=== PATIENT | male | born 1960 | race Caucasian/White ===

== ENCOUNTER 2019-05-28 11:43 | Outpatient (CLI) | payer OTHER, SELFPAY ==
[2019-05-28 11:54] LABS: Basophils Absolute Auto 0.1 K/mm3 (0.0-0.1); Basophils Percent Auto 0.9 % (0.2-1.2); Eosinophils Absolute Auto 0.3 K/mm3 (0-0.3); Eosinophils Percent Auto 2.3 % (0-4.4); Hematocrit 45.8 % (42.0-52.0); Hemoglobin 16.5 g/dL (14.0-18.0); Immature Granulocyte Absolute 0.07 K/mm3 (0.00-0.031); Immature Granulocyte Percent A 0.5 % (0-0.5); Lymphocytes Absolute Auto 2.67 K/mm3 (0.9-3.2); Lymphocytes Percent Auto 20.8 % (18.3-44.2); Mean Corpuscular Volume 94.2 fl (80-100); Mean Platelet Volume 9.8 fl (7.4-10.4); Monocytes Absolute Auto 1.6 K/mm3 (0.1-0.6); Monocytes Percent Auto 12.8 % (2.6-8.5); Neutrophils Percent Auto 62.7 % (45.5-73.1); Platelet Count Result 311 k/mm3 (150-375); Red Blood Count 4.86 M/mm3 (4.6-6.20); Red Cell Distribution Width 12.6 % (11.5-14.5); White Blood Count 12.8 K/mm3 (4.5-10.0)
[2019-05-28 11:58] LABS: Blood Urea Nitrogen 21 mg/dL (8-26); Carbon Dioxide 29 mmol/L (22-30); Chloride 100 mmol/L (98-109); Estimated Glomerular Filt Rate > 60; Glucose 89 mg/dL (70-105); Potassium 4.5 mmol/L (3.5-4.9); Sodium 138 mmol/L (138-146)
[2019-05-28 12:25] LABS: Alanine Aminotransferase 15 U/L (4-50); Albumin Level 4.4 g/dL (3.5-5.1); Alkaline Phosphatase 87 U/L (38-126); Aspartate Amino Transferase 25 U/L (17-59); Bilirubin,Total 0.9 mg/dL (0.2-1.3); Blood Urea Nitrogen 21 mg/dL (9-20); Carbon Dioxide 27 mmol/L (22-30); Chloride 97 mmol/L (98-107); Estimated Glomerular Filt Rate > 60; Glucose 91 mg/dL (75-110); Potassium 4.7 mmol/L (3.4-5.0); Sodium 138 mmol/L (137-145)
== END 2019-05-28 11:44 | disposition home or self-care (01) ==
LOC: ANHLAB 11:46
PROVIDERS: PCP Internal Medicine; Visit Provider Internal Medicine Hematology & Oncology
DX: D75.1 Secondary polycythemia (principal)
CPT/HCPCS: 36415; 80048; 80053; 85025

== ENCOUNTER 2022-04-14 13:17 | Outpatient (CLI) | payer OTHER, SELFPAY ==
[2022-04-14 18:19] LABS: Alanine Aminotransferase 21 U/L (6-50); Albumin Level 4.3 g/dL (3.5-5.1); Alkaline Phosphatase 86 U/L (38-126); Anion Gap 8 mmol/L (8-16); Aspartate Amino Transferase 55 U/L (17-59); Bilirubin,Total 0.7 mg/dL (0.2-1.3); Blood Urea Nitrogen 12 mg/dL (9-20); Calcium 9.2 mg/dL (8.4-10.2); Carbon Dioxide 28 mmol/L (22-30); Chloride 104 mmol/L (98-107); Cholesterol 191 mg/dL (0-200); Estimated Glomerular Filt Rate > 60; Glucose 93 mg/dL (65-110); HDL Direct 53 mg/dL; Potassium 5.4 mmol/L (3.4-5.0); Sodium 140 mmol/L (137-145); Triglycerides 71 mg/dL (<150)
[2022-04-14 18:34] LABS: LDL Cholesterol Direct 113 mg/dL
[2022-04-14 18:41] LABS: Prostate Specific Antigen 0.8 ng/mL (< OR = 4.0)
[2022-04-14 18:53] LABS: Basophils Absolute Auto 0.1 K/mm3 (0.0-0.1); Basophils Percent Auto 1.3 % (0.2-1.2); Eosinophils Absolute Auto 0.3 K/mm3 (0-0.3); Eosinophils Percent Auto 2.3 % (0-4.4); Hematocrit 48.9 % (42.0-52.0); Hemoglobin 17.6 g/dL (14.0-18.0); Immature Granulocyte Absolute 0.15 K/mm3 (0.00-0.031); Immature Granulocyte Percent A 1.4 % (0-0.5); Lymphocytes Absolute Auto 2.68 K/mm3 (0.9-3.2); Lymphocytes Percent Auto 24.9 % (18.3-44.2); Mean Corpuscular Hemoglobin 33.9 pg (26-34); Mean Corpuscular Volume 94.2 fl (80-100); Mean Platelet Volume 10.3 fl (7.4-10.4); Monocytes Absolute Auto 1.1 K/mm3 (0.1-0.6); Monocytes Percent Auto 10.6 % (2.6-8.5); Neutrophils Absolute Auto 6.4 K/mm3 (1.3-6.7); Neutrophils Percent Auto 59.5 % (45.5-73.1); Platelet Count Result 335 k/mm3 (150-375); Red Blood Count 5.19 M/mm3 (4.6-6.20); Red Cell Distribution Width 13.3 % (11.5-14.5); White Blood Count 10.8 K/mm3 (4.5-10.0)
== END 2022-04-14 13:18 | disposition home or self-care (01) ==
LOC: ANHGOSHLAB 13:18
PROVIDERS: PCP Internal Medicine; Visit Provider Nurse Practitioner
DX: E78.00 Pure hypercholesterolemia, unspecified (principal); Z13.29 Encounter for screening for other suspected endocrine disorder; Z12.5 Encounter for screening for malignant neoplasm of prostate
CPT/HCPCS: 36415; 80053; 80061; 84153; 85025; G0103

== ENCOUNTER 2023-05-05 10:38 | Outpatient (CLI) | payer OTHER, SELFPAY ==
[2023-05-05 13:11] LABS: Basophils Absolute Auto 0.1 K/mm3 (0.0-0.1); Basophils Percent Auto 1.1 % (0.2-1.2); Eosinophils Absolute Auto 0.3 K/mm3 (0-0.3); Eosinophils Percent Auto 2.3 % (0-4.4); Hematocrit 50.7 % (42.0-52.0); Hemoglobin 17.4 g/dL (14.0-18.0); Immature Granulocyte Absolute 0.07 K/mm3 (0.00-0.031); Immature Granulocyte Percent A 0.6 % (0-0.5); Lymphocytes Absolute Auto 2.74 K/mm3 (0.9-3.2); Mean Corpuscular HGB Conc 34.3 g/dl (32-36); Mean Corpuscular Hemoglobin 33.7 pg (26-34); Mean Corpuscular Volume 98.1 fl (80-100); Mean Platelet Volume 10.7 fl (7.4-10.4); Monocytes Absolute Auto 1.4 K/mm3 (0.1-0.6); Neutrophils Absolute Auto 7.3 K/mm3 (1.3-6.7); Platelet Count Result 313 k/mm3 (150-375); Red Blood Count 5.17 M/mm3 (4.6-6.20); Red Cell Distribution Width 12.8 % (11.5-14.5); White Blood Count 11.9 K/mm3 (4.5-10.0)
[2023-05-05 13:47] LABS: Alanine Aminotransferase 13 U/L (6-50); Albumin Level 4.2 g/dL (3.5-5.1); Alkaline Phosphatase 75 U/L (38-126); Anion Gap 5 mmol/L (8-16); Aspartate Amino Transferase 52 U/L (17-59); Blood Urea Nitrogen 20 mg/dL (9-20); Calcium 9.8 mg/dL (8.4-10.2); Carbon Dioxide 30 mmol/L (22-30); Chloride 103 mmol/L (98-107); Cholesterol 207 mg/dL (0-200); Estimated Glomerular Filt Rate 56; Glucose 105 mg/dL (65-110); HDL Direct 63 mg/dL; Potassium 5.1 mmol/L (3.4-5.0); Sodium 138 mmol/L (137-145); Triglycerides 69 mg/dL (<150)
[2023-05-05 13:59] LABS: LDL Cholesterol Direct 119 mg/dL
[2023-05-05 14:17] LABS: Prostate Specific Antigen 1.5 ng/mL (< OR = 4.0)
== END 2023-05-05 10:39 | disposition home or self-care (01) ==
LOC: ANHGOSHLAB 10:39
PROVIDERS: PCP Internal Medicine; Visit Provider Nurse Practitioner
DX: Z12.5 Encounter for screening for malignant neoplasm of prostate (principal); E78.00 Pure hypercholesterolemia, unspecified; Z13.29 Encounter for screening for other suspected endocrine disorder
CPT/HCPCS: 36415; 80053; 80061; 84153; 85025; G0103

== ENCOUNTER 2023-11-02 09:28 | Outpatient (CLI) | payer OTHER, SELFPAY ==
[2023-11-02 13:41] LABS: Anion Gap 7 mmol/L (4-12); Blood Urea Nitrogen 11 mg/dL (9-20); Calcium 9.2 mg/dL (8.4-10.2); Carbon Dioxide 29 mmol/L (22-30); Chloride 99 mmol/L (98-107); Cholesterol 194 mg/dL (0-200); Estimated Glomerular Filt Rate > 60; Glucose 105 mg/dL (65-110); HDL Direct 64 mg/dL; Potassium 4.3 mmol/L (3.4-5.0); Sodium 135 mmol/L (137-145); Triglycerides 71 mg/dL (<150)
[2023-11-02 13:56] LABS: LDL Cholesterol Direct 117 mg/dL
== END 2023-11-02 09:29 | disposition home or self-care (01) ==
LOC: ANHGOSHLAB 09:30
PROVIDERS: PCP Internal Medicine; Visit Provider Nurse Practitioner
DX: E78.00 Pure hypercholesterolemia, unspecified (principal); R94.4 Abnormal results of kidney function studies
CPT/HCPCS: 36415; 80048; 80061

== ENCOUNTER 2023-12-16 11:28 | Outpatient (CLI) | payer OTHER, SELFPAY ==
--- NOTE | ~2023-12-16 | CT_ITS ---
EXAMINATION: CT lung screening DATE: 12/16/2023 11:42 INDICATION: Z72.0 - Tobacco use TECHNIQUE: Computed tomography (CT) of the chest was performed without intravenous contrast. Addition al 3D reconstructions utilizing coronal maximum intensity projection (MIP) were performed. Dr. Keith jean baptiste The dose-length product was 85.49 mGy-cm. COMPARISON: 12/22/2018 FINDINGS: Moderate emphysema. Mild linear discoid atelectasis at the and anteroapical left upper lobe. The su rity of the prior small spiculated nodular opacities have resolved. There is no change in a residual 6 mm spiculated nodule at the anterior inferior right upper lobe. Unchanged 3 mm subpleural nodule at the lateral basilar right lower lobe. There are few additional small scattered bilateral calcified p ulmonary nodules along with calcified left hilar lymph nodes consistent with old granulomatous diseas e. No new or enlarging pulmonary nodules, pneumonia, pulmonary edema or pleural effusion. Heart size is normal. Small amount of atherosclerotic coronary artery calcific location. No pericardial effusion . Thoracic aorta is normal in caliber. No pathologically enlarged thoracic lymphadenopathy. There are multiple splenic calcific lesions consistent with old granulomatous disease. Atherosclerotic calcifi cation is at the right renal hilum. Severe thoracolumbar spondylosis with chronic mild anterior wedgi ng at T11-L1. IMPRESSION: 1. Lung-RADS category 2: Benign appearance or behavior. Continue annual screening with noncontrast lo w-dose chest CT in 12 months. Reviewed, dictated and finalized at location B. IMPRESSION: 1. Lung-RADS category 2: Benign appearance or behavior. Continue annual screeni ng with noncontrast low-dose chest CT in 12 months.
== END 2023-12-16 11:29 | disposition home or self-care (01) ==
LOC: MICIMG 11:29
PROVIDERS: PCP Internal Medicine; Visit Provider Nurse Practitioner
DX: Z12.2 Encounter for screening for malignant neoplasm of respiratory organs (principal); Z87.891 Personal history of nicotine dependence
CPT/HCPCS: 71271

== ENCOUNTER 2024-03-07 14:43 | Emergency (ER) | payer MEDICARE, SELFPAY ==
[2024-03-07 14:48] VITALS: BP 143/92; PULSE 94; RESP 16; TEMP 36.9; O2SAT 98
--- NOTE | 2024-03-07 15:03 | ED_ITS ---
HPI - Ear Problem General Chief complaint: Ear Stated complaint: Hearing aid end in right ear Time Seen by Provider: 03/07/24 15:03 Source: patient and RN notes reviewed Mode of arrival: ambulatory Limitations: no limitations History of Present Illness HPI Narrative: 64-year-old male presents with concern for foreign body in his right ear. He reports the tip of an ear bud got stuck in his ear this morning, he tried to get it out with tweezers but has not been able to. MD Complaint: foreign body Related Data Allergies Allergy/AdvReac Type Severity Reaction Status Date / Time No Known Allergies Allergy Verified 11/07/23 09:26 Review of Systems Review of Systems: ENT: Reports foreign body in the right ear, decreased hearing All systems reviewed & are unremarkable except as noted in HPI and below PMFSH Past Medical History Medical History Chicken pox Colon polyps Depression Erectile dysfunction HTN (hypertension) Hypercholesterolemia Leukocytosis Measles Mumps Surgical History Surgical History H/O hand surgery right pinky finger repair 1970 Family History Family History Mother Patient's mother is in good health Father Acute myocardial infarction Hypertension CAD (coronary artery disease) CVD (cardiovascular disease) Social History Social History Smoking packs per day: 1.5 Smoking cigarettes per day: 30.0 Years smoked: 42 Smoking pack-years: 63.00 Smoking status: Current every day smoker Alcohol intake: current Alcohol use details: occasional-beer Lack of Transportation: YES Lack of Food: Sometimes True Current Housing: I Have Housing Concerned About Future Housing: YES Difficulty Paying Gas/Electric Bills: YES Difficulty Paying for Meds: YES Currently Unemployed: YES Education: Associate Degree Difficulty w/ Childcare or Family Care: YES Comments At time of signature, agree with nursing past medical, surgical, social and family history. There is no relevant family history pertinent to the presenting complaint Exam Narrative: GENERAL: Well-appearing, well-nourished, and in no acute distress. HEAD: Normocephalic EYES: PERRLA, conjunctivae clear ENT: Nares clear. Mucous membranes moist. Foreign body noticed to the right year, after room TM pearly muro with sharp light reflex bilaterally; no tragal tenderness. NECK: Supple. No lymphadenopathy CHEST: No respiratory distress, speaks in full sentences. SKIN: Warm, dry, no rash. NEURO: Alert and oriented x3. PSYCH: Normal mood and affect Course Course Emergency Course: Patient is aware of diagnosis, understands and agrees to treatment plan. Anticipatory guidance given. Patient agrees to follow-up as directed and is aware of reasons to seek care at the emergency department. Portions of this record may have been created with voice recognition software Level of Care: Express Care Visit Vital Signs Vital signs: Vital Signs Temperature 98.4 F 03/07/24 14:48 Pulse Rate 94 03/07/24 14:48 Respiratory Rate 16 03/07/24 14:48 Blood Pressure 143/92 H 03/07/24 14:48 Pulse Oximetry 98 03/07/24 14:48 Oxygen Delivery Room Air 03/07/24 14:48 Temperature 98.4 F 03/07/24 14:48 Pulse Rate 94 03/07/24 14:48 Respiratory Rate 16 03/07/24 14:48 Blood Pressure 143/92 H 03/07/24 14:48 Pulse Oximetry 98 03/07/24 14:48 Oxygen Delivery Room Air 03/07/24 14:48 Reviewed. Procedures FB Removal Ear Foreign Body #1: Foreign Body Removal Date: 03/07/24 Foreign Body Removal Time: 15:06 Location: ear canal (R) Foreign Body Suspected: other plastic TM intact pre-procedure: unable to visualize Foreign Body Removed: yes Foreign Body Removal Technique: forceps Tympanic Membrane Intact Post Procedure: Yes Patient Tolerated Procedure: well Complications: none Medical Decision Making MDM Narrative Medical decision making narrative: I evaluated this in the [facility] care. History is obtained from patient who is an independent historian and physical exam was performed.? Available medical records were reviewed. ? Exam findings and relevant testing show no acute concerns or changes; patient is non-toxic appearing and is in no distress. Differential diagnosis considered: Francois virus, strep pharyngitis, allergic rhinitis, upper respiratory tract infection, sinusitis, rhinosinusitis, nasopharyngitis. viral pharyngitis, otitis media, otitis externa, otitis effusion, cerumen impaction, foreign body. Exam findings show no acute concerns or changes; patient is non-toxic appearing and is in no distress. Patient is appropriate for outpatient treatment and follow-up. ? Differential diagnosis and treatment plan were discussed with the patient. Patient agrees with discussion and after shared medical decision making agrees with plan of care. All questions were answered to the patient's satisfaction. Patient is appropriate for outpatient treatment and follow-up. Vital Signs Vital Signs: Vital Signs Temperature 98.4 F 03/07/24 14:48 Pulse Rate 94 03/07/24 14:48 Respiratory Rate 16 03/07/24 14:48 Blood Pressure 143/92 H 03/07/24 14:48 Pulse Oximetry 98 03/07/24 14:48 Oxygen Delivery Room Air 03/07/24 14:48 Temperature 98.4 F 03/07/24 14:48 Pulse Rate 94 03/07/24 14:48 Respiratory Rate 16 03/07/24 14:48 Blood Pressure 143/92 H 03/07/24 14:48 Pulse Oximetry 98 03/07/24 14:48 Oxygen Delivery Room Air 03/07/24 14:48 Critical Care Time Critical Care Time Critical Care Time: No Discharge Plan Discharge Clinical Impression: Foreign body in right ear Patient Disposition: Home, Self-Care Condition: Stable Instructions: Ear Foreign Body (ED) Additional Instructions: 1) Please follow-up with your primary care doctor if you have any new symptoms or concerns 2) If you have any urgent concerns please go to the ER. 3) Please continue taking your home medications as usual. 4) Please read and follow information included in discharge instructions. Prescriptions: No Action omeprazole 20 mg capsule,delayed release(DR/EC) 20 mg PO DAILY Qty: 90 3RF amlodipine 10 mg tablet 10 mg PO DAILY Qty: 90 3RF atorvastatin 20 mg tablet 20 mg PO QHS Qty: 90 3RF Follow-up/Referrals: Juancho Bustos DO [Primary Care Provider] - Time of Disposition: 15:08
== END 2024-03-07 15:13 | disposition home or self-care (01) ==
PROVIDERS: Emergency Provider Nurse Practitioner; PCP Internal Medicine
DX: T16.1XXA Foreign body in right ear, initial encounter (principal); W44.B9XA Other plastic object entering into or through a natural orifice, initial encounter; I10 Essential (primary) hypertension; E78.00 Pure hypercholesterolemia, unspecified; F17.210 Nicotine dependence, cigarettes, uncomplicated
CPT/HCPCS: 69200; 99212; G0463

== ENCOUNTER 2024-12-25 09:33 | Outpatient (CLI) | payer MEDICARE, SELFPAY ==
--- OUTSIDE RECORDS SUMMARY | 2000-01-28 19:00 | XMS_ITS | Continuity of Care Document ---
Author Organization [facility] Address [address] [place] [address] [place] [address] Phone Care Team Providers Care Inside Tester Name Role Phone Unavailable Unavailable Unavailable Advance Directives Directive Yes / No Effective Date File Name No Information Encounters Encounter Description Practice Location Reason(s) For Visit Diagnoses Date Provider Providers Copied on Encounter [facility], [address] [place] [address] [address], [place], [place], [id number], [place] tel:[phone] YUA [facility] No Information 7200 0 No Information Family History Family Member Type Diagnosis Age At Onset No Information Payers Payer name Insurance type Covered democrat ID Authoriza tion(s) No Information Social History [...]
--- OUTSIDE RECORDS SUMMARY | 2024-12-25 10:18 | XMS_ITS | Clinical Summary ---
Author Organization [facility] Address [address] [place] [address] Care Team Providers Care Hoop Bender Tank Name Role Phone Juancho Bustos DO Primary Care Provider Allergies No known active allergies Medications lisinopril (PRINIVIL) 10 mg tablet Take 10 mg by mouth daily. Active atorvastatin (LIPITOR) 10 mg tablet Take 10 mg by mouth daily with supper. Active varenicline (CHANTIX) 0.5 mg (11)- 1 mg (42) tablets in a dose pack Take as directed on package.. 1 Package 10/19/2018 Active methylphenidate HCl (RITALIN) 10 mg tablet TK 1 T PO QID 0 10/04/2018 Ac tive sildenafil, antihypertensiv e, (REVATIO) 20 mg Tablet TK 3 TO 5 TS PO QD NEEDED. NTE 100 MG IN 36 H 0 10/19/2018 Active WELLBUTRIN XL 150 mg Extended Release 24 hour tablet Take 1 Tablet (150 mg) by mouth daily clay pigeon loader. 30 Tablet 2 10/26/2018 Active Active Problems Problem Noted Date Diagnosed Date Leukocytosis (leucocytosis) 10/19/2018 Erythrocytosis 10/19/2018 Family History Medical History Relation Name Comments Cancer Brother 2 Relation Name Status Comments Brother 1 Alive Brother 2 Father Mother Alive Sister Alive Son 1 Alive Son 2 Alive Social History Tobacco Use Types Packs/Day Years Used Date Smoking Tobacco: Every Day Cigarettes Alcohol Use Standard Drinks/Week Comments Yes 0 (1 standard drink = 0.6 oz pur e alcohol) Sex and Gender Information Value Date Recorded Sex Assigned at Not on file Legal Sex Male 11:59 AM CDT Gender Identity Not on file Sexual Orientation Not on file Last Filed Vital Signs Vital Sign Reading Time Taken Comments Blood Pressure 104/64 05/28/2019 12:02 PM MANAGER PUBLIC Pulse 87 05/28/2019 12:02 PM MANAGER PUBLIC Temperature 36.5 C (97.7 F) 05/28/2019 12:02 PM MANAGER PUBLIC Respiratory Rate 16 10/19/2018 1:50 PM CDT Oxygen Saturation 96% 05/28/2019 12:02 PM MANAGER PUBLIC Inhaled Oxygen Concentration - - Weight 80.5 kg (177 lb 6.4 oz) 05/28/2019 12:02 PM MANAGER PUBLIC Height 180.3 cm (5' 11) 05/28/2019 12:02 PM MANAGER PUBLIC Body Mass Index 24.74 05/28/2019 12:02 PM MANAGER PUBLIC Plan of Treatment Health Maintenance Due Date Last Done Comments DTAP/TDAP/TD VACCINES (1 - Tdap) 1978 PNEUMOCOCCAL VACCINE 50+ YEARS (1 of 2 - PCV) 01/31/19 78 COLORECTAL SCREENING 02/01/2004 Colorectal Cancer Screening 02/01/2004 FIT-DNA Q 3 years 02/01/2004 FIT/FOBT Q 1 year 02/01/2004 Flex Sig/CT Colonography Q 5 years 02/01/2004 ZOSTER VACCINE (1 of 2) 2009 INFLUENZA VACCINE (#1) 2024 RSV VACCINE (60+ or ) (1 - 1-dose 75+ series) 2034 Insurance AETNA CHOICE POS II Care Teams Hoop Bender Tank Relationship Specialty Start Date End Date Juancho Bustos DO [address] [place] [address] PCP - General Internal Medicine 09/21/18
--- OUTSIDE RECORDS SUMMARY | 2024-12-25 10:18 | XMS_ITS | Clinical Summary ---
Author Organization [facility] Address [address] [place] [address] Care Team Providers Care Physician General Internal Medicine Name Role Phone Gian Mercer MD Primary Care Provider + Source Comments [facility],non-owned Affiliates and Associated Physician Practices is amultiple site organization consisting of ambulatory clinics and hospital sitesin [place], [place], [place] and [place]. This disclosure is being madepursuant to the Care Everywhere program and may not contain all information available regarding this patient. Last updated 17.[facility] Allergies No known active allergies Medications * Be aware that medications may not be up to date on this document. Alwaysverify current medications with the patient. polyethylene glycol (GOLYTELY) 236 g solution Drink 1/2 of prep at 5pm the night before test. Finish the prep at 4am the day of test. 4000 mL 2 Active albuterol HFA (PROVENTIL; VENTOLIN; PROAIR) 108 (90 Base) MCG/ACT inhaler Inhale 2 puffs by mouth every 6 hours as needed 1 Active amLODIPine (NORVASC) 10 MG tablet Take 10 mg by mouth once 1 Active atorvastatin (LIPITOR) 40 MG tablet 1 Active lisinopril (PRINIVIL; ZESTRIL) 10 MG tablet Take 10 mg by mouth once daily Active methylphenidate (RITALIN) 10 MG tablet Take 10 mg by mouth 4 times daily 1 Active omeprazole (PRILOSEC) 40 MG capsule Take 40 mg by mouth once daily 1 Active sildenafil (VIAGRA) 100 MG tablet Take 100 mg by mouth once daily as needed FOR ERECTILE DYSFUNCTION 1 Active tadalafil (CIALIS) 10 MG tablet 1 Active Social History Tobacco Use Types Packs/Day Years Used Date Smoking Tobacco: Every Day Cigarettes Smokeless Tobacco: Never Alcohol Use Standard Drinks/Week Comments Yes 0 (1 standard drink = 0.6 oz pur e alcohol) social, occasional AUDIT-C Answer Date Recorded Q1: How often do you have a drink containing alc ohol? Never 04/06/2021 Average Number of Drinks Not on file 022 Q3: How often do you have si x or more drinks on one occasion? Never 04/06/2021 Sex and Gender Information Value Date Recorded Sex Assigned at Not on file Legal Sex Male 7:40 AM BIRD RAISER Gender Identity Not on file Sexual Orientation Not on file Last Filed Vital Signs Vital Sign Reading Time Taken Comments Blood Pressure 142/86 04/06/2021 10:00 AM BIRD RAISER Pulse 69 04/06/2021 10:00 AM BIRD RAISER Temperature 36.4 C (97.5 F) 04/06/2021 10:00 AM BIRD RAISER Respiratory Rate 19 04/06/2021 10:00 AM BIRD RAISER Oxygen Saturation 99% 04/06/2021 10:00 AM BIRD RAISER Inhaled Oxygen Concentration - - Weight 83.1 kg (183 lb 4.8 oz) 04/06/2021 8:05 A M BIRD RAISER Height 180.3 cm (5' 11) 04/06/2021 8:05 AM BIRD RAISER Body Mass Index 25.57 04/06/2021 8:05 AM BIRD RAISER Plan of Treatment Health Maintenance Due Date Last Done Comments CT COLONOGRAPHY - COLON CA SCREENING 1959 FIT - COLON CA SCREENING 1959 FLEX SIG - COLON CA SCREENING 1959 HIV SCREENING 1974 DTAP/TDAP/TD VACCINES (1 - Tdap) 1978 PNEUMOCOCCAL VACCINE 50+ (1 of 1 - PCV) 2009 ZOSTER VACCINE (1 of 2) 2009 COLOGUARD (AGES 45-75) - COL ON CA SCREENING 01/20/2024 01/19/2021 AAA SCREENING 02/01/2024 DEPRESSION SCREENING 04/04/2024 COVID-19 VACCINE ( - 2023-2 5 season) 2024 INFLUENZA VACCINE (#1) 2024 12/31/2020 COLON MONITORING 04/06/2031 04/06/2021, 04/06/2021 COLONOSCOPY - COLON CA SCREENING 04/06/2031 04/06/2021, 04/06/2021 Colorectal Cancer Screening 04/06/2031 Respiratory Syncytial Virus (RSV) Vaccine Pt: or over 60 yrs (1 - 1-dose 75+ series) 2034 HEPATITIS C SCREENING Completed 01/26/2021 HEPATITIS B VACCINE Aged Out No longe r eligible based on patient's age to complete this topic HIB VACCINE Aged Out No longer eligi ble based on patient's age to complete this topic HPV VACCINE Aged Out No longer eligi ble based on patient's age to complete this topic MENINGOCOCCAL (Group B) VACCINE SHARED DECISION-MAKING Aged Out No longer eligible based on patient's age to complete this topic MENINGOCOCCAL GROUPS A/C/Y/W VACCINE Aged Out No longer eligible b ased on patient's age to complete this topic Procedures Procedure Name Priority Date/Time Associated Diagnosis Comments ENDOSCOPY, COLON, DIAGNOSTIC Routine 04/06/2021 8:02 AM BIRD RAISER from Last 3 Months or Most Recently Relevant to Health Maintenance Results * ENDOSCOPY, COLON, DIAGNOSTIC (04/06/2021 8:02 AM BIRD RAISER) Report Endoscopy POC Endoscopy Department Report _ Patient Name: Pearl Sandoval Procedure Date: 04/06/2021 8:02 AM Date of : 1960 Classification: Outpatient Gender: Male Ethnicity: Not or Race: White _ Providers: Neptali Torres MD Referring MD: Kenny Cole MD Procedure: Colonoscopy Indications: Positive Cologuard test Medications: See the Anesthesia note for documentation of the administered medications Patient Profile: 61M w/ +Cologuard, here for Colonoscopy. Description of Procedure: After I obtained informed consent, the scope was passed under direct vision. Throughout the procedure, the patient's blood pressure, pulse, and oxygen saturations were monitored continuously. The [id number] was introduced through the anus and advanced to the cecum, identified by appendiceal orifice and ileocecal valve. The colonoscopy was performed without difficulty. The patient tolerated the procedure well. The quality of the bowel preparation was evaluated using the BBPS ([place] Bowel Preparation Scale) with scores of: Right Colon = 3 (entire mucosa seen well with no residual staining, small fragments of stool or opaque liquid), Transverse Colon = 3 (entire mucosa seen well with no residual staining, small fragments of stool or opaque liquid) and Left Colon = 2 (minor amount of residual staining, small fragments of stool and/or opaque liquid, but mucosa seen well). The total BBPS score equals 8. The quality of the bowel preparation was good. Findings: A 6 mm polyp was found in the ascending colon. The polyp was sessile. The polyp was removed with a cold snare. Resection and retrieval were complete. A 2 mm polyp was found in the rectum. The polyp was sessile. The polyp was removed with a cold biopsy forceps. Resection and retrieval were complete. A 10 mm polyp was found in the rectum. The polyp was flat. The polyp was removed with a cold snare. Resection and retrieval were complete. To prevent bleeding after the polypectomy, two hemostatic clips were successfully placed (DruaClip 11 mm - MR [facility]). There was no bleeding at the end of the procedure. Multiple small and large-mouthed diverticula were found in the sigmoid colon. The perianal and digital rectal examinations were normal. Estimated Blood Loss: Estimated blood loss was minimal. Complications: No immediate complications. Impression: - One 6 mm polyp in the ascending colon, removed with a cold snare. Resected and retrieved. - One 2 mm polyp in the rectum, removed with a cold biopsy forceps. Resected and retrieved. - One 10 mm polyp in the rectum, removed with a cold snare. Resected and retrieved. Two clips placed for prophylaxis (DuraClip 11 mm - MR conditional). - Diverticulosis in the sigmoid colon. Moderate Sedation: MAC Recommendation: - Patient has a contact number available for emergencies. The signs and symptoms of potential delayed complications were discussed with the patient. Return to normal activities tomorrow. Written discharge instructions were provided to the patient. - Resume previous diet. - Continue present medications. - Await pathology results. - Timing of repeat colonoscopy for surveillance to be determined based on pathology results. Attending Participation: I personally performed the entire procedure. Procedure Code(s): --- Professional --- 24228, Colonoscopy, flexible; with removal of tumor(s), polyp(s), or other lesion(s) by snare technique 72337, 59, Colonoscopy, flexible; with biopsy, single or multiple Diagnosis Code(s): --- Professional --- K63.5, Polyp of colon K62.1, Rectal polyp R19.5, Other fecal abnormalities K57.30, Diverticulosis of large intestine without perforation or abscess without bleeding CPT copyright 2019 [employer]. All rights reserved. The codes documented in this report are preliminary and upon lighting engineering technician review may be revised to meet current compliance requirements. Neptali Torres MD 04/06/2021 9:31:31 AM Note Initiated On: 04/06/2021 8:02 AM Number of Addenda: [address] [id number] [facility] 04/06/2021 8:02 AM BIRD RAISER us Neptali Torres MD GI PROCEDURE ORDERAB LES Edited Result - Final [facility] from Last 3 Months or Most Recently Relevant to Health Maintenance Insurance AETNA AETNA Care Teams Physician General Internal Medicine Relationship Specialty Start Date End Date Gian Mercer MD [address] [facility] [address] [place] [address] PCP - General 02/11/21
[2024-12-25 11:06] LABS: Hematocrit 48.6 % (42.0-52.0); Hemoglobin 16.9 g/dL (14.0-18.0); Immature Granulocyte Percent A 0.5 % (0-0.5); Lymphocytes Absolute Auto 1.33 K/mm3 (0.9-3.2); Mean Corpuscular HGB Conc 34.8 g/dl (32-36); Mean Corpuscular Hemoglobin 33.9 pg (26-34); Mean Corpuscular Volume 97.4 fl (80-100); Nucleated Red Blood Cells Absolute Auto 0.000 K/mm3 (0.0-0.012); Nucleated Red Blood Cells Perc 0.0 % (0.0-0.2); Platelet Count Result 311 k/mm3 (150-375); Red Blood Count 4.99 M/mm3 (4.6-6.20); White Blood Count 10.1 K/mm3 (4.5-10.0)
[2024-12-25 11:18] LABS: Alanine Aminotransferase 12 U/L (6-50); Albumin Level 4.3 g/dL (3.5-5.1); Alkaline Phosphatase 74 U/L (38-126); Anion Gap 7 mmol/L (4-12); Aspartate Amino Transferase 38 U/L (17-59); Bilirubin,Total 1.2 mg/dL (0.2-1.3); Blood Urea Nitrogen 10 mg/dL (9-20); Calcium 9.2 mg/dL (8.4-10.2); Carbon Dioxide 27 mmol/L (22-30); Chloride 102 mmol/L (98-107); Cholesterol 206 mg/dL (0-200); Estimated Glomerular Filt Rate > 60; Glucose 102 mg/dL (65-110); HDL Direct 70 mg/dL; Sodium 136 mmol/L (137-145); Total Protein 7.8 g/dL (6.3-8.2); Triglycerides 66 mg/dL (<150)
[2024-12-25 11:27] LABS: Potassium 4.7 mmol/L (3.4-5.0)
[2024-12-25 11:53] LABS: Prostate Specific Antigen 1.1 ng/mL (< OR = 4.0)
== END 2024-12-25 09:34 | disposition home or self-care (01) ==
LOC: ANHGOSHLAB 09:34
PROVIDERS: PCP Internal Medicine; Visit Provider Nurse Practitioner
DX: Z12.5 Encounter for screening for malignant neoplasm of prostate (principal); R94.4 Abnormal results of kidney function studies; E87.5 Hyperkalemia; D75.1 Secondary polycythemia; E78.00 Pure hypercholesterolemia, unspecified; Z13.29 Encounter for screening for other suspected endocrine disorder
CPT/HCPCS: 36415; 80053; 80061; 84153; 85025; G0103

== ENCOUNTER 2025-01-08 13:19 | Outpatient (CLI) | payer MEDICARE, SELFPAY ==
--- OUTSIDE RECORDS SUMMARY | 2000-01-28 19:00 | XMS_ITS | Continuity of Care Document ---
Author Organization [facility] Address [id number] [place] [address] [place] [address] Phone Care Team Providers Care Rn Stars Name Role Phone Unavailable Unavailable Unavailable Advance Directives Directive Yes / No Effective Date File Name No Information Encounters Encounter Description Practice Location Reason(s) For Visit Diagnoses Date Provider Providers Copied on Encounter [facility], [address] [place] [address] [address], [place], [place], [id number], [place] tel:[phone] OBV [facility] No Information 7200 0 No Information Family History Family Member Type Diagnosis Age At Onset No Information Payers Payer name Insurance type Covered libertarian ID Authoriza tion(s) No Information Social History Type Description Quantity Date Captured Comments Sex Male Smoking Status No Information Chief Complaint And Reason For Visit No Information Reason For Referral Reason For Referral No Information History Of Present Illness Encounter Date Complaint History Of Prese nt Illness No Information Functional Status Date Functional Assessmen t No Information Instructions Date Instruction Additional Infor mation No Information Assessments Type Assessment Date No Information Patient Care Teams Name Effective Dates (start - stop) Status Members No Information
--- NOTE | ~2025-01-08 | CT_ITS ---
EXAMINATION:CT lung screening DATE: 01/08/2025 14:00 INDICATION: Personal history of nicotine dependence. TECHNIQUE: Computed tomography (CT) of the chest was performed without intravenous contrast. Automated exposure control and iterative reconstruction technique were employed. The dose-length product (DLP) was 97.85 mGy-cm. COMPARISON: Chest CT 12/16/2023 FINDINGS: There is moderate emphysema. There is mild atelectasis bilaterally. There are a few scattered 3 mm nodules in the lungs. There is a stable 4 mm nodule in right upper lobe. Calcified left lung nodules and calcified left hilar lymph nodes are consistent with old granulomatous disease. No pleural effusion. The heart size is normal. There are coronary artery calcifications. No pericardial effusion. Calcifications in the spleen are consistent with old granulomatous disease. There is severe cervical spondylosis, moderate thoracic spondylosis, and severe lumbar spondylosis. There is mild chronic anterior wedging of multiple vertebral bodies. IMPRESSION: 1. Lung-RADS category 2: Benign appearance or behavior. Continue annual screening with noncontrast low-dose chest CT in 12 months. Reviewed, dictated and finalized at location E. IMPRESSION: 1. Lung-RADS category 2: Benign appearance or behavior. Continue annual screeni ng with noncontrast low-dose chest CT in 12 months.
--- NOTE | ~2025-01-08 | US_ITS ---
EXAMINATION: US carotid duplex BI DATE: 01/08/2025 14:08 INDICATION: Other specified symptoms and signs involving the circulatory system. Carotid atherosclerosis. TECHNIQUE: Grayscale, color Doppler, and pulsed Doppler images of the cervical carotid arteries were obtained. The degree of vessel stenosis is placed in one of the following categories: normal, <50%, 50-69%, >=70% but less than near- occlusion, near-occlusion, or total occlusion. Note that percent stenosis relative to normal distal artery lumen diameter is indirectly measured from velocity measurements as described by Nino, et al. Radiology 2003; 229:340-346. COMPARISON: None. FINDINGS: RIGHT: The right common carotid artery (CCA) peak systolic velocity (PSV) is 66 cm/s. The right internal carotid artery (ICA) PSV is 68 cm/s. The right ICA end- diastolic velocity (EDV) is 30 cm/s. The right ICA/CCA PSV ratio is 1.3. Grayscale and color Doppler images yield an estimate of <50% diameter reduction from plaque in the ICA. The external carotid artery (ECA) PSV is 108 cm/s. There is antegrade flow in the right vertebral artery. LEFT: The left CCA PSV is 59 cm/s. The left ICA PSV is 69 cm/s. The left ICA EDV is 34 cm/s. The left ICA/CCA PSV ratio is 1.4. Grayscale and color Doppler images yield an estimate of <50% diameter reduction from plaque in the ICA. The ECA PSV is 104 cm/s. There is antegrade flow in the left vertebral artery. IMPRESSION: 1. <50% stenosis in the right internal carotid artery. 2. <50% stenosis in the left internal carotid artery. Reviewed, dictated and finalized at location A.
--- OUTSIDE RECORDS SUMMARY | 2025-01-08 14:13 | XMS_ITS | Clinical Summary ---
Author Organization [facility] Address [address] [place] [address] Care Team Providers Care Clean Up Supervisor Name Role Phone Kenny Cole MD Primary Care Provider [phone] Allergies No known active allergies Medications omeprazole 40 MG capsuleIndications :Gastroesophageal reflux disease without esophagitis Take 1 capsule (40 mg total) by mouth daily. 30 capsule 2 1 Active methylphenidate 10 MG tablet Take 10 mg by mouth. 1 Active aspirin 81 MG chewable tabletIndications: Atherosclerosis of aorta,Coronary artery calcification Chew 1 tablet (81 mg total) by mouth daily. 120 tablet 2 Active buPROPion SR (WELLBUTRIN SR) 150 MG 12 hr tabletIndications: Cigarette smoker Take 1 tablet (150 mg total) by mouth 2 (two) times daily. 60 tablet 2 2 Active tadalafil 20 MG tablet Take 20 mg by mouth daily. 2 Active nicotine 21 MG/24HRIndications :Tobacco dependence Place 1 patch (21 mg total) onto the skin daily. 28 patch 11 2 Active atorvastatin 80 MG tabletIndications: Atherosclerosis of aorta,Mixed hyperlipidemia,Cor onary artery calcification Take 1 tablet (80 mg total) by mouth nightly at bedtime. 90 tablet 2 2 Active amLODIPine 10 MG tabletIndications: Primary hypertension Take 1 tablet (10 mg total) by mouth daily. 90 tablet 2 2 Active albuterol sulfate HFA 108 (90 Base) MCG/ACT inhalerIndications :Other emphysema (CMS/HCC HHS/HCC) Inhale 2 puffs into the lungs every 6 (six) hours as needed for Wheezing. 18 g 4 Active Active Problems Problem Noted Date Diagnosed Date Personal history of colonic polyps 09/03/2021 Tobacco dependence 04/01/2021 Positive colorectal cancer screening using Colog uard test 04/01/2021 Primary hypertension 01/26/2021 Multiple pulmonary nodules d etermined by computed tomography of lung 01/23/2021 Other emphysema (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) 01/23/2021 Hyperkalemia 01/23/2021 Leukocytosis (leucocytosis) 10/19/2018 Immunizations Immunization Administration Dates Next Due Fluzone 6 Months+ Quad (0.5 mL Prefilled Syringe ) 12/31/2020 Pneumococcal (Pneumovax 23) 01/26/2021 Tdap (Adacel) 12/31/2020 Family History Medical History Relation Comments Cancer Brother Heart Disease Father Stroke Father Drug Abuse Son Relation Status Comments Brother Father Mother Alive Son Social History Tobacco Use Types Packs/Day Years Used Date Smoking Tobacco: Heavy Smoker Cigarettes 2.5 40 Smokeless Tobacco: Never Tobacco Cessation:Ready to Q uit: Yes; Counseling Given: Yes Comments:04-17-2021 pt states he down to 1 PPD Alcohol Use Standard Drinks/Week Comments Never 0 (1 standard drink = 0.6 oz pur e alcohol) PHQ-2 Answer Date Recorded PHQ-2 Score - If the patient scores above 3, please move on to questions 3-9 0 04/17/2021 Sex and Gender Information Value Date Recorded Sex Assigned at Not on file Legal Sex Male 7:16 AM CDT Gender Identity Not on file Sexual Orientation Not on file Last Filed Vital Signs Vital Sign Reading Time Taken Comments Blood Pressure 129/82 09/03/2021 10:00 AM CDT Pulse 83 09/03/2021 10:00 AM CDT Temperature 37.4 C (99.3 F) 09/03/2021 10:00 AM CDT Respiratory Rate 18 09/03/2021 10:00 AM CDT Oxygen Saturation 96% 09/03/2021 10:00 AM CDT Inhaled Oxygen Concentration - - Weight 84.5 kg (186 lb 3.2 oz) 09/03/2021 10:00 AM CDT Height 177.8 cm (5' 10) 09/03/2021 10:00 AM CDT Body Mass Index 26.72 09/03/2021 10:00 AM CDT Plan of Treatment Health Maintenance Due Date Last Done Comments ASCVD Statin 1960 Zoster Vaccines (1 of 2) 2009 RSV Immunization or 60+ Years (1 - Risk 60-74 years 1-dose series) 2019 Pneumococcal Vaccine: 50+ Years (2 of 2 - PCV) 01/26/2022 01/26/2021 ASCVD LDL 06/30/2022 06/30/2021, 12/2 12/2020, 01/15/2021, Additional history exists COVID-19 Vaccine ( - season) 2024 07/27/2020, 07/05/2020 Influenza Adult (#1) 2025 12/31/2020 DTaP, Tdap and Td Vaccines (2 - Td or Tdap) 12/31/2030 12/31/2020 Colorectal Cancer Screening Colonoscopy (10 Years) 04/06/2031 04/06/2021 Colorectal Cancer Screening FIT-DNA (3 Years) Discontinued 01/19/2021, 01/19/2021 Hepatitis C Completed 01/26/2021 Meningococcal B Vaccine Aged Out No l onger eligible based on patient's age to complete this topic Meningococcal Vaccine Aged Out No ani yonathan eligible based on patient's age to complete this topic RSV Immunizations Under 20 Months Aged Out No longer eligible based on patient's age to complete this topic Procedures Procedure Name Priority Date/Time Associated Diagnosis Comments LIPID PANEL Routine 06/30/2021 9:58 AM CDT Mixed hyperlipidemia COLONOSCOPY GENERIC (SCAN ORDER) 04/06/2021 HEPATITIS C ANTIBODY Routine 01/26/2021 3:02 PM CDT Encounter for hepatitis C screening test for low risk patient COLOGUARD (EXACT SCIENCE) Routine 01/19/2021 11:00 AM CDT Screening for colon cancer from Last 3 Months or Most Recently Relevant to Health Maintenance Results * LIPID PANEL (06/30/2021 9:58 AM CDT) Pathologist [facility] CHOLESTEROL 148 <200 MG/DL 06/30/2021 2:57 PM CDT [facility] TRIGLYCERIDES 40 <150 MG/DL 06/30/2021 2:57 PM CDT [facility] HDL 63 >40 MG/DL 06/30/2021 2:57 PM CDT [facility] LDL-C 77 <100 MG/DL 06/30/2021 2:57 PM CDT [facility] VLDL CALCULATION 8 5 - 28 MG/DL 06/30/2021 2:57 PM CDT [facility] CHOL/HDL RATIO 2.3 0.0 - 4.0 06/30/2021 2:57 PM CDT [facility] LDL/HDL 1.2 0.41 - 2.13 06/30/2021 2:57 PM CDT [facility] NON HDL CHOLESTEROL 85 <140 MG/DL 06/30/2021 2:57 PM CDT [facility] 06/30/2021 9:58 AM CDT us Kenny Cole MD LABORATORY Final Result [facility] [address] [place] [address], * COLONOSCOPY GENERIC (04/06/2021) 04/06/2021 Narrative 04/06/2021 Ordered by an unspecified provider. us Documents Scanned SCANNING Final Result * HEPATITIS C ANTIBODY (01/26/2021 3:02 PM CDT) Pathologist [facility] HEPATITIS C AB NON-REACTI VE NON-REACT HECTOR 01/26/2021 9:50 PM CDT [facility] Comment: ANTIBODIES TO HCV NOT DETECTED. DOES NOT EXCLUDE THE POSSIBILITY OF EXPOSURE TO HCV. 01/26/2021 3:02 PM CDT Kenny Cole MD LABORATORY Final Result [facility] [address] [place] [address], [phone] * (ABNORMAL) COLOGUARD (Reds10 SCIENCE) (01/19/2021 11:00 AM CDT) COLOGUARD RESULT Positive( A) Negative [facility] (CLIA #:[id number]) Comment: POSITIVE TEST RESULT. A positive Cologuard result should be followed with a colonoscopy or visual examination of the colon. The normal value (reference range) for this assay is negative. TEST DESCRIPTION: Composite algorithmic analysis of stool DNA-biomarkers with hemoglobin immunoassay. Quantitative values of individual biomarkers are not reportable and are not associated with individual biomarker result reference ranges. Cologuard is intended for colorectal cancer screening of adults of either sex, 45 years or older, who are at average-risk for colorectal cancer (CRC). Cologuard has been approved for use by the U.S. FDA. The performance of Cologuard was established in a cross sectional study of average-risk adults aged 50-84. Cologuard performance in patients ages 45 to 49 years was estimated by sub-group analysis of near-age groups. Colonoscopies performed for a positive result may find as the most clinically significant lesion: colorectal cancer [4.0%], advanced adenoma (including sessile serrated polyps greater than or equal to 1cm diameter) [20%] or non- advanced adenoma [31%]; or no colorectal neoplasia [45%]. These estimates are derived from a prospective cross-sectional screening study of 10,000 individuals at average risk for colorectal cancer who were screened with both Cologuard and colonoscopy. (Marlee Alfaro al, N Engl J Med 2014;370(14):4956-5078.) Cologuard may produce a false negative or false positive result (no colorectal cancer or precancerous polyp present at colonoscopy follow up). A negative Cologuard test result does not guarantee the absence of CRC or advanced adenoma (pre-cancer). The current Cologuard screening interval is every 3 years. ([place] [employer] Society and U.S. Multi-Society Task Force). Cologuard performance data in a 10,000 patient pivotal study using colonoscopy as the reference method can be accessed at the following location: www.[employer]/results. Additional description of the Cologuard test process, warnings and precautions can be found at www.cologuard.com. Stool specimen (specimen) STOOL SPECIMEN / Unknown 01/19/2021 11:00 AM CDT 01/21/2021 8:08 PM CDT us Anna Dodge FITNESS MANAGER BODY FLUIDS AND STOOLS ORDERABLE S Final Result Performing Organization Address City/State/[facility] Co de Phone Number [employer] [address] [place] [address], [facility] (CLIA #:[id number]) [address] [place] [address] from Last 3 Months or Most Recently Relevant to Health Maintenance Insurance [employer]ET[employer] Care Teams Clean Up Supervisor Relationship Specialty Start Date End Date Kenny Cole MD [address] [place] [address] PCP - General INTERNAL MEDICINE 01/16/21
--- OUTSIDE RECORDS SUMMARY | 2025-01-08 14:13 | XMS_ITS | Clinical Summary ---
Author Organization [facility] Address [address] [place] [address] Care Team Providers Care Diesel Automotive Technician Name Role Phone Juancho Bustos DO Primary [...] 1 Tablet (150 mg) by mouth daily portable sawyer. 30 Tablet 2 10/26/2018 Active Active Problems [...] Comments Blood Pressure 104/64 05/28/2019 12:02 PM ORGANIC PREPARATION TECHNICIAN Pulse 87 05/28/2019 12:02 PM ORGANIC PREPARATION TECHNICIAN Temperature 36.5 C (97.7 F) 05/28/2019 12:02 PM ORGANIC PREPARATION TECHNICIAN Respiratory Rate 16 10/19/2018 1:50 PM CDT Oxygen Saturation 96% 05/28/2019 12:02 PM ORGANIC PREPARATION TECHNICIAN Inhaled Oxygen Concentration - - Weight 80.5 kg (177 lb 6.4 oz) 05/28/2019 12:02 PM ORGANIC PREPARATION TECHNICIAN Height 180.3 cm (5' 11) 05/28/2019 12:02 PM ORGANIC PREPARATION TECHNICIAN Body Mass Index 24.74 05/28/2019 12:02 PM ORGANIC PREPARATION TECHNICIAN Plan of Treatment Health Maintenance Due Date [...] Insurance [employer] CHOICE POS II Care Teams Diesel Automotive Technician Relationship Specialty Start Date End Date Juancho Bustos DO [address] [facility] [place] [address] PCP - General Internal Medicine 09/21/18
--- OUTSIDE RECORDS SUMMARY | 2025-01-08 14:13 | XMS_ITS | Clinical Summary ---
Author Organization [facility] Address [address] [place] [address] Care Team Providers Care Professional Security Officer Name Role Phone Gian Mercer MD Primary Care Provider + Source Comments [facility],non-owned Affiliates and Associated Physician Practices is amultiple site organization consisting of ambulatory clinics and hospital sitesin [place], [place], [place] and [place]. This disclosure is being madepursuant to the Care Everywhere program and may not contain all information available regarding this patient. Last updated 17.[facility] Allergies No known active allergies Medications * [...] on file Legal Sex Male 7:40 AM NEWSPAPER DELIVERY COUNSELOR Gender Identity Not on file Sexual Orientation Not on file Last Filed Vital Signs Vital Sign Reading Time Taken Comments Blood Pressure 142/86 04/06/2021 10:00 AM NEWSPAPER DELIVERY COUNSELOR Pulse 69 04/06/2021 10:00 AM NEWSPAPER DELIVERY COUNSELOR Temperature 36.4 C (97.5 F) 04/06/2021 10:00 AM NEWSPAPER DELIVERY COUNSELOR Respiratory Rate 19 04/06/2021 10:00 AM NEWSPAPER DELIVERY COUNSELOR Oxygen Saturation 99% 04/06/2021 10:00 AM NEWSPAPER DELIVERY COUNSELOR Inhaled Oxygen Concentration - - Weight 83.1 kg (183 lb 4.8 oz) 04/06/2021 8:05 A M NEWSPAPER DELIVERY COUNSELOR Height 180.3 cm (5' 11) 04/06/2021 8:05 AM NEWSPAPER DELIVERY COUNSELOR Body Mass Index 25.57 04/06/2021 8:05 AM NEWSPAPER DELIVERY COUNSELOR Plan of Treatment Health Maintenance Due Date [...] ENDOSCOPY, COLON, DIAGNOSTIC Routine 04/06/2021 8:02 AM NEWSPAPER DELIVERY COUNSELOR from Last 3 Months or Most Recently Relevant to Health Maintenance Results * ENDOSCOPY, COLON, DIAGNOSTIC (04/06/2021 8:02 AM NEWSPAPER DELIVERY COUNSELOR) Report Endoscopy POC Endoscopy Department Report _ [...] and oxygen saturations were monitored continuously. The [id number] was introduced through the anus and advanced to the cecum, identified by appendiceal orifice and ileocecal valve. The colonoscopy was performed without difficulty. The patient tolerated the procedure well. The quality of the bowel preparation was evaluated using the BBPS (Boswell Bowel Preparation Scale) with scores of: Right [...] successfully placed (DruaClip 11 mm - MR [facility]). There was no bleeding at the end [...] entire procedure. Procedure Code(s): --- Professional --- 31720, Colonoscopy, flexible; with removal of tumor(s), polyp(s), or other lesion(s) by snare technique 47307, 59, Colonoscopy, flexible; with biopsy, single or multiple Diagnosis Code(s): --- Professional --- K63.5, Polyp of colon K62.1, Rectal polyp R19.5, Other fecal abnormalities K57.30, Diverticulosis of large intestine without perforation or abscess without bleeding CPT copyright 2019 [employer]. All rights reserved. The codes documented in this report are preliminary and upon offset printer review may be revised to meet current compliance requirements. Neptali Torres MD 04/06/2021 9:31:31 AM Note Initiated On: 04/06/2021 8:02 AM Number of Addenda: [address] [address] [facility] 04/06/2021 8:02 AM NEWSPAPER DELIVERY COUNSELOR us Neptali Torres MD GI PROCEDURE ORDERAB LES Edited Result - Final [facility] from Last 3 Months or Most Recently Relevant to Health Maintenance Insurance AETNA AETNA Care Teams Professional Security Officer Relationship Specialty Start Date End Date Gian Mercer MD [address] [facility] [address] [place] [address] PCP - General 02/11/21
--- OUTSIDE RECORDS SUMMARY | 2025-01-08 14:13 | XMS_ITS | Encounter Summary ---
Author Organization [facility] Address [address] [place] [address] Care Team Providers Care Audio Production Engineer Name Role Phone Kenny Cole MD Primary Care Provider Encounter Details Date Type Department Care Team (Late st Contact Info) Description 01/27/2021 [id number] Message Enc [facility] - [place] [address] [place] [address] [place] [address] [place] [address] [address] [place] [address] lab results Social History Tobacco Use Types Packs/Day Years Used Date Smoking Tobacco: Heavy Smoker Cigarettes 2 40 Smokeless Tobacco: Never Alcohol Use Standard Drinks/Week Comments Never 0 (1 standard drink = 0.6 oz pur e alcohol) PHQ-2 Answer Date Recorded PHQ-2 Score - If the patient scores above 3, please move on to questions 3-9 2 12/31/2020 Sex and Gender Information Value Date Recorded Sex Assigned at Not on file Legal Sex Male 7:16 AM CDT Gender Identity Not on file Sexual Orientation Not on file COVID-19 Exposure Response Date Recorded In the last month, have you been in contact with someone who was confirmed or suspected to have Coronavirus / COVID-19? No / Unsure 01/26/2021 1:43 PM CDT documented as of this encounter Plan of Treatment Not on file documented as of this encounter Visit Diagnoses Not on filedocumented in this encounter Additional Health Concerns Assessment Noted Time PHQ-9 Depression Total Score: 8 01/01/20 21 1:40 PM CDT documented as of this encounter Care Teams Audio Production Engineer Relationship Specialty Start Date End Date Kenny Cole MD [address] [address] PCP - General INTERNAL MEDICINE 01/16/21 documented as of this encounter
== END 2025-01-08 13:20 | disposition home or self-care (01) ==
PROVIDERS: PCP Internal Medicine; Visit Provider Nurse Practitioner
DX: R09.89 Other specified symptoms and signs involving the circulatory and respiratory systems (principal); Z87.891 Personal history of nicotine dependence; I65.23 Occlusion and stenosis of bilateral carotid arteries
CPT/HCPCS: 71271; 93880